=== PATIENT | female | born 1955 | race American Indian/Alaskan Native ===

== ENCOUNTER 2017-02-25 06:34 | Day surgery (SDC) | payer OTHER, MEDICAID ==
[2017-02-25] MEDS ORDERED: NACL 0.9% 500 ML 500 ML IV SCH (08:00)
[2017-02-25 08:10] LABS: Basophils % (Auto) 0.7 % (0.0-1.8); Eosinophils % (Auto) 4.8 % (0.0-4.3); Hemoglobin 12.3 gm/dl (10.1-14.3); Mean Corpuscular HGB Conc 33 % (30-34); Mean Corpuscular Hemoglobin 30 pg (28-32); Mean Corpuscular Volume 91 fl (79-97); Platelet Count 250 K/mm3 (140-440); Red Blood Count 4.08 M/mm3 (3.65-5.03); Red Cell Distribution Width 13.8 % (13.2-15.2); White Blood Count 7.6 K/mm3 (4.5-11.0)
[2017-02-25 08:20] LABS: Anion Gap 13 mmol/L; BUN/Creatinine Ratio 20; Blood Urea Nitrogen 12 mg/dL (7-17); Calcium 9.1 mg/dL (8.4-10.2); Carbon Dioxide 30 mmol/L (22-30); Chloride 99.3 mmol/L (98-107); Glucose 152 mg/dL (65-100); Potassium 4.6 mmol/L (3.6-5.0); Sodium 138 mmol/L (137-145)
[2017-02-25] MEDS ORDERED: ECOTRIN PO ONE ×2 (08:29→11:30)
[2017-02-25 08:36] LABS: INR 0.94 (0.87-1.13)
[2017-02-25] MEDS ORDERED: HEPARIN/NS 5000 UNIT/500ML(CATH LAB) 1,000 ML IR ONE (09:06)
[2017-02-25] MEDS ORDERED: HEPARIN 10,000 UNITS/10 ML ONE (09:06)
[2017-02-25] MEDS ORDERED: XYLOCAINE 2% INFILTRATI ONE ×2 (09:07→09:34)
[2017-02-25] MEDS ORDERED: CALAN ONE (09:07)
[2017-02-25] MEDS ORDERED: VERSED ONE (09:10)
[2017-02-25] MEDS ORDERED: SUBLIMAZE ONE (09:10)
[2017-02-25] MEDS ORDERED: NITROGLYCERIN SYRINGE 3 ML ONE (09:11)
[2017-02-25] MEDS ORDERED: SUBLIMAZE IV ONE (09:32)
[2017-02-25] MEDS ORDERED: VERSED IV ONE (09:32)
[2017-02-25] MEDS ORDERED: HEPARIN 10,000 UNITS/10 ML IV ONE (09:35)
[2017-02-25] MEDS ORDERED: NITROGLYCERIN SYRINGE UD ONE (09:35)
--- NOTE | 2017-02-25 09:49 | Short Stay Summary ---
Short Stay Documentation Date of service: 02/25/17 - History H&P: obtained from office - Allergies and Medications Current Medications: Allergies shellfish derived Adverse Reaction (Verified 02/25/17 07:18) Hives Home Medications Medication Instructions Recorded Confirmed Last Taken Type AtorvaSTATin [Lipitor] 80 mg PO QHS 02/25/17 02/25/17 02/24/17 History Dexlansoprazole [Dexilant] 60 mg PO QDAY 02/25/17 02/25/17 02/24/17 History Gabapentin [Neurontin] 100 mg PO TID 02/25/17 02/25/17 02/24/17 History Insulin Detemir [Levemir] 25 units SQ TID 02/25/17 02/25/17 02/24/17 12:00 History Insulin Glulisine [Apidra] 15 units SUB-Q BID 02/25/17 02/25/17 02/24/17 12:00 History Losartan [Cozaar] 25 mg PO QDAY 02/25/17 02/25/17 02/24/17 History Metformin HCl [Glucophage] 1,000 mg PO QDAY 02/25/17 02/25/17 02/24/17 History Metoprolol Succinate [Toprol Xl] 50 mg PO QDAY 02/25/17 02/25/17 02/24/17 History Active Medications Aspirin (Ecotrin) 325 mg PO ONCE ONE Stop: 02/25/17 08:25 Sodium Chloride (Nacl 0.9% 500 Ml) 500 mls @ 50 mls/hr IV DIRECT ROMANA Stop: 02/25/17 17:59 Last Admin: 02/25/17 08:01 Dose: 50 mls/hr - Physical exam General appearance: no acute distress Integumentary: no rash HEENT: Atraumatic Lungs: Clear to auscultation Breasts: deferred Heart: Regular rate Gastrointestinal: normal Female Genitourinary: deferred Rectal Exam: deferred Extremities: no ischemia Neurological: Normal gait - Brief post op/procedure progress note Date of procedure: 02/25/17 Pre-op diagnosis: Abnormal MPI Post-op diagnosis: same Procedure: LHC, LV gram Anesthesia: MAC Findings: See report Surgeon: AIDAN DUBOSE Estimated blood loss: none Pathology: none Condition: stable - Hospital course Hospital course: Uneventful - Disposition Condition at discharge: Good Disposition: DC-01 TO HOME OR SELFCARE Short Stay Discharge Plan Activity: advance as tolerated Weight Bearing Status: Weight Bear as Tolerated Diet: low fat, low cholesterol, low salt, diabetic Special Instructions: hold Metformin (for 48 hours)
--- NOTE | 2017-02-25 10:19 | Cardiac Catherization Report ---
LEFT HEART CATHETERIZATION DATE OF PROCEDURE: 02/25/2017 ORDERING PHYSICIAN: Lucia Forman MD INDICATION FOR PROCEDURE: Atypical chest pain, intermedius myocardial perfusion scan. PROCEDURES PERFORMED: 1. Selective left and right coronary angiography. 2. Left ventriculography. DESCRIPTION OF PROCEDURE: After obtaining written consent, the patient was draped using sterile technique. A 2% lidocaine was injected into the right wrist. A 6-Serbian vascular sheath was inserted into the right radial artery. A 6-Serbian JL3.5 catheter was used to selectively engage the left coronary artery. A 6-Serbian 3DRC catheter was used to selectively engage the right coronary artery. A 6-Serbian JR4 catheter was used to hand inject the left ventriculogram. No complications occurred during the procedure. Hemostasis was achieved at the end of the procedure using manual pressure. SPECIMEN REMOVED: None. ESTIMATED BLOOD LOSS: Minimal. FINDINGS: HEMODYNAMICS: 1. Aortic pressure 139/82. 2. Left ventricular systolic pressure 129 mmHg. 3. Left ventricular end-diastolic pressure of 13 mmHg. CARDIAC STRUCTURES: Normal left ventricular size and systolic function with an ejection fraction estimated at 60%. CORONARY ANATOMY: 1. This is a right dominant circulation. 2. The left main is angiographically normal. 3. The LAD is angiographically normal. 4. The left circumflex artery is angiographically normal. 5. The right coronary artery is angiographically normal. IMPRESSION: 1. Angiographically normal coronary arteries. 2. Normal left ventricular size and systolic function. 3. Left ventricular end-diastolic pressure measured at 13 mmHg. 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 [facility]# [id number] [facility]/[place]
[2017-02-25 12:23] VITALS: BP 140/95
== END 2017-02-25 13:02 | disposition home or self-care (01) ==
LOC: CATHLABREC 06:34
PROVIDERS: ATTEND Internal Medicine
DX: R07.89 Other chest pain (principal); R94.39 Abnormal result of other cardiovascular function study; I10 Essential (primary) hypertension; Z79.4 Long term (current) use of insulin; E11.40 Type 2 diabetes mellitus with diabetic neuropathy, unspecified; E78.5 Hyperlipidemia, unspecified; Z90.710 Acquired absence of both cervix and uterus; Z98.890 Other specified postprocedural states; Z82.49 Family history of ischemic heart disease and other diseases of the circulatory system; Z83.3 Family history of diabetes mellitus
CPT/HCPCS: 36415; 80048; 85025; 85610; 85730; 93005; 93010; 93458; C1894; J1644; J2250; J3010; J7040; Q9967